=== PATIENT | male | born 1940 | race Caucasian/White ===

== ENCOUNTER → 2018-12-28 | Outpatient (CLI) | payer MEDICARE, OTHER ==
[2018-12-28 11:01] LABS: Source, Urine Clean Catch
[2018-12-28 12:46] LABS: Bilirubin, Urine Neg (Neg); Blood, Urine 1+ (Neg); Glucose Qualitative, Urine Neg (Neg); Ketones, Urine Neg (Neg); Leukocyte Esterase, Urine Neg (Neg); Nitrite, Urine Neg (Neg); Protein, Urine Neg (Neg); Specific Gravity, Urine 1.005 (1.003-1.022); Urobilinogen, Urine NORM (Normal)
[2018-12-28 12:56] LABS: Appearance, Urine Clear (Clear); Color, Urine Yellow (P-Yellow)
[2018-12-28 12:58] LABS: Bacteria Rare /hpf; Red Blood Cells, Urine 0-2 /hpf (0-2); Squamous Epithelial Cells Not Seen /hpf (Few); White Blood Cells, Urine 0-2 /hpf (0-5)
== END ==
LOC: LAB 10:58 → LAB SHORT 10:58 → EDSTATUS 12-28 19:55 → LAB FUT 12-28 19:55
PROVIDERS: Physician Assistant
DX: C61 Malignant neoplasm of prostate (principal); N39.43 Post-void dribbling
CPT/HCPCS: 81001; 87086

== ENCOUNTER → 2019-02-21 | Outpatient (CLI) | payer MEDICARE, OTHER | END | disposition home or self-care (01) | LOC: LAB SHORT 13:46 → PLD 13:46 | DX: C44.629 Squamous cell carcinoma of skin of left upper limb, including shoulder (principal) | CPT/HCPCS: 88305 ==

== ENCOUNTER → 2019-03-21 | Outpatient (CLI) | payer MEDICARE, OTHER | END | disposition home or self-care (01) | LOC: PLD 14:26 → LAB SHORT 14:26 | DX: C44.629 Squamous cell carcinoma of skin of left upper limb, including shoulder (principal) | CPT/HCPCS: 88305 ==

== ENCOUNTER → 2019-09-14 | Outpatient (CLI) | payer MEDICARE, BC | END | disposition home or self-care (01) | LOC: LAB SHORT 12:48 → PLD 12:48 | DX: D48.5 Neoplasm of uncertain behavior of skin (principal); C44.629 Squamous cell carcinoma of skin of left upper limb, including shoulder | CPT/HCPCS: 88305 ==

== ENCOUNTER → 2019-10-04 | Outpatient (CLI) | payer MEDICARE, BC | END | disposition home or self-care (01) | LOC: LAB SHORT 10:02 → PLD 10:02 | DX: C44.629 Squamous cell carcinoma of skin of left upper limb, including shoulder (principal) | CPT/HCPCS: 88305 ==

== ENCOUNTER → 2019-10-26 | Outpatient (CLI) | payer MEDICARE, BC | END | disposition home or self-care (01) | LOC: PLD 08:04 → LAB SHORT 08:04 | DX: C44.722 Squamous cell carcinoma of skin of right lower limb, including hip (principal); L81.4 Other melanin hyperpigmentation | CPT/HCPCS: 88305 ==

== ENCOUNTER → 2020-03-06 | Outpatient (CLI) | payer MEDICARE, BC ==
[~2020-03-06] MED LIST: ASPIR 8181 M1 PO; ATOR10 PO; CALCIUM CARBON500 M4 PO; CIDAFLEX TABLE1 EAC1 PO; COENZYME Q10100 MG PO; DYAZIDE 37.5-21 EACH PO; QUIN10 PO
== END ==
LOC: LAB SHORT 12:34 → PLD 12:34
DX: L57.0 Actinic keratosis (principal); L08.89 Other specified local infections of the skin and subcutaneous tissue
CPT/HCPCS: 88305

== ENCOUNTER → 2020-08-23 | Outpatient (CLI) | payer MEDICARE, BC | END | disposition home or self-care (01) | LOC: LAB SHORT 11:29 | DX: C44.719 Basal cell carcinoma of skin of left lower limb, including hip (principal); C44.519 Basal cell carcinoma of skin of other part of trunk | CPT/HCPCS: 88305 ==

== ENCOUNTER → 2022-02-03 | Outpatient (CLI) | payer MEDICARE, BC | LOC: LAB SHORT 14:53 → PLD 14:53 | DX: D03.4 Melanoma in situ of scalp and neck (principal) | CPT/HCPCS: 88305; 88342 ==

== ENCOUNTER → 2022-04-09 | Outpatient (CLI) | payer MEDICARE, BC | END | disposition home or self-care (01) | LOC: LAB SHORT 11:21 | DX: C44.719 Basal cell carcinoma of skin of left lower limb, including hip (principal); D04.5 Carcinoma in situ of skin of trunk | CPT/HCPCS: 88305 ==

== ENCOUNTER → 2022-10-14 | Outpatient (CLI) | payer MEDICARE, BC | END | disposition home or self-care (01) | LOC: LAB SHORT 07:38 → PLD 07:38 | DX: L82.1 Other seborrheic keratosis (principal); L81.4 Other melanin hyperpigmentation | CPT/HCPCS: 88305 ==

== ENCOUNTER → 2022-10-20 | Outpatient (CLI) | payer MEDICARE, BC | END | disposition home or self-care (01) | LOC: LAB 09:58 → LAB SHORT 09:58 | DX: N39.0 Urinary tract infection, site not specified (principal) | CPT/HCPCS: 87077; 87086; 87186 ==

== ENCOUNTER → 2022-11-19 | Outpatient (CLI) | payer MEDICARE, BC | END | disposition home or self-care (01) | LOC: LAB SHORT 16:47 → LAB 16:47 | DX: L08.0 Pyoderma (principal) | CPT/HCPCS: 87070; 87205 ==

== ENCOUNTER → 2022-12-29 | Outpatient (CLI) | payer MEDICARE, BC | LOC: PLD 14:49 → LAB 14:49 → LAB SHORT 14:49 | DX: L72.8 Other follicular cysts of the skin and subcutaneous tissue (principal) | CPT/HCPCS: 88304 ==

== ENCOUNTER → 2023-01-27 | Outpatient (CLI) | payer MEDICARE, BC | END | disposition home or self-care (01) | LOC: PLD 11:37 → LAB SHORT 11:37 | DX: L57.0 Actinic keratosis (principal); L57.8 Other skin changes due to chronic exposure to nonionizing radiation | CPT/HCPCS: 88305; 88312 ==

== ENCOUNTER → 2023-09-15 | Outpatient (CLI) | payer MEDICARE, BC | END | disposition home or self-care (01) | LOC: LAB 14:20 → LAB SHORT 14:20 | DX: L57.0 Actinic keratosis (principal) | CPT/HCPCS: 88305 ==

== ENCOUNTER 2025-03-09 09:06 | Day surgery (SDC) | payer MEDICARE, OTHER ==
[~2025-03-09] VITALS: Ht 180.3 cm; Wt 80.1 kg
[~2025-03-09 09:06] MED LIST changes: +Balanced Salt Epinephrine Irrigation Solution 500 mL IR SCH; +Ondansetron 4 MG SoluTab MM PRN; +PHENYLEPHRINE\\TROPICAMIDE\\TETRACAINE OPHTHALMIC DILATING SOLN RIGHTEYE PRN; +Povidone-Iodine 450 DROP/30 ML Solution ONE; +Povidone-Iodine 450 DROP/30 ML Solution RIGHTEYE SCH; +Tetracaine HCl/Pf 0.5% Opth Soln 4 ml ONE; +Triamcinolone Inj Susp 40 MG / ML 1ML Vial INJ SCH; +Triamcinolone Inj Susp 40 MG / ML 1ML Vial ONE; +diazePAM 2 MG,diazePAM 5 MG PO SCH
[2025-03-09] MEDS ORDERED: LISI20 (09:39)
--- NOTE | 2025-03-09 09:45 | NUR ---
03/09/25 0945 Charisse Moreira PT STATES ANXIETY LEVEL IS 0/10 IN PREOP CALL LIGHT IN HAND PT IS ON CONTINUOUS PULSE OX MONITORING
[2025-03-09] MEDS ORDERED: Tetracaine HCl 0.5% Opth Soln 15 ml RIGHTEYE ONE (10:15)
[2025-03-09] MEDS ORDERED: Moxifloxacin HCL 0.5 MG/0.1 ML 0.4MLSYR RIGHTEYE ONE (10:20)
--- NOTE | 2025-03-09 10:20 | NUR ---
03/09/25 1020 Kaelyn Weber 72 HR 100% O2 159/88 BP 18 RR
[2025-03-09 10:36] VITALS: BP 148/78
--- NOTE | 2025-03-09 10:47 | NUR ---
03/09/25 Adriana7 GENET VALENCIA DAUGHTER AT BEDSIDE. DAUGHTER AND PT VERBALIZE UNDERSTANDING AND DENY QUESTIONS. PT VERBALIZES READINESS TO DC HOME.
== END 2025-03-09 10:50 | disposition home or self-care (01) ==
LOC: ORSCSDS 09:06
PROVIDERS: Ophthalmology
PROC: 08RJ3JZ Replacement of Right Lens with Synthetic Substitute, Percutaneous Approach (ICD-10-PCS; principal; 2025-03-09 10:30)
DX: H25.811 Combined forms of age-related cataract, right eye (principal); H21.81 Floppy iris syndrome; I10 Essential (primary) hypertension; Z79.899 Other long term (current) drug therapy
CPT/HCPCS: A9270; J3301; V2632

== ENCOUNTER 2025-03-16 07:08 | Day surgery (SDC) | payer MEDICARE, OTHER ==
[~2025-03-16] VITALS: Ht 180.3 cm; Wt 88.6 kg
[~2025-03-16 07:08] MED LIST changes: +LISI20; +Moxifloxacin HCL 0.5 MG/0.1 ML 0.4MLSYR LEFTEYE SCH; +PHENYLEPHRINE\\TROPICAMIDE\\TETRACAINE OPHTHALMIC DILATING SOLN LEFTEYE PRN; -PHENYLEPHRINE\\TROPICAMIDE\\TETRACAINE OPHTHALMIC DILATING SOLN RIGHTEYE PRN; +Povidone-Iodine 450 DROP/30 ML Solution LEFTEYE SCH; -Povidone-Iodine 450 DROP/30 ML Solution RIGHTEYE SCH
[2025-03-16] MEDS ORDERED: Tetracaine HCl 0.5% Opth Soln 15 ml LEFTEYE ONE (08:20)
--- NOTE | 2025-03-16 08:25 | NUR ---
03/16/25 0825 Candace Rodriguez 137/83 BP 71 HR 97% 02 16 RR
[2025-03-16 08:56] VITALS: BP 160/83
== END 2025-03-16 08:52 | disposition home or self-care (01) ==
LOC: ORSCSDS 07:08
PROVIDERS: Ophthalmology
PROC: 08RK3JZ Replacement of Left Lens with Synthetic Substitute, Percutaneous Approach (ICD-10-PCS; principal; 2025-03-16 08:30)
DX: H25.812 Combined forms of age-related cataract, left eye (principal); H21.81 Floppy iris syndrome; Z96.1 Presence of intraocular lens; I10 Essential (primary) hypertension; Z79.899 Other long term (current) drug therapy; Z87.891 Personal history of nicotine dependence
CPT/HCPCS: A9270; J3301; V2632